=== PATIENT | male | born 1940 | race Two or more races ===

== ENCOUNTER → 2018-02-28 | Outpatient (CLI) | payer MEDICARE | END | disposition home or self-care (01) | LOC: RADPV 14:32 | PROVIDERS: ATTEND Legal Medicine | DX: M25.552 Pain in left hip (principal) | CPT/HCPCS: 73503 ==

== ENCOUNTER 2018-11-14 21:23 | Emergency (ER) | payer MEDICARE ==
[~2018-11-14] VITALS: Ht 182.9 cm; Wt 71.8 kg
[2018-11-14] MEDS ORDERED: SERT25TA PO (21:45)
[2018-11-14] MEDS ORDERED: GABA600T PO (21:45)
[2018-11-14] MEDS ORDERED: FERR325T22 PO (21:45)
[2018-11-14] MEDS ORDERED: CYAN250014 PO (21:45)
[2018-11-14] MEDS ORDERED: HYDR-4455 PO (21:45)
[2018-11-14] MEDS ORDERED: FURO40SO PO (21:45)
[2018-11-14] MEDS ORDERED: FOLI1TAB15 PO (21:45)
[2018-11-14] MEDS ORDERED: TAMS0.4C32 PO (21:45)
[2018-11-14] MEDS ORDERED: POTA20TA11 PO (21:45)
[2018-11-14] MEDS ORDERED: XALA2.5OS OU (21:45)
[2018-11-14] MEDS ORDERED: DIAZ5TAB4 PO (21:45)
[2018-11-14] MEDS ORDERED: DOCU250C16 PO (21:45)
[2018-11-14] MEDS ORDERED: FINA5TAB41 PO (21:45)
[2018-11-14] MEDS ORDERED: ASCO500T24 PO (21:45)
[2018-11-14] MEDS ORDERED: KETOROLAC TROMETHAMINE 30 MG/ML VIAL IVP ONE (22:15)
[2018-11-14] MEDS ORDERED: ACETAMINOPHEN 325 MG TABLET PO ONE (22:15)
[2018-11-14 22:33] LABS: BASOPHILS % (AUTO) 0.6 % (0.0-2.0); EOSINOPHILS % (AUTO) 0.8 % (1.0-6.0); HEMATOCRIT 36.4 % (41-53); HEMOGLOBIN 11.9 g/dL (13.5-17.5); LYMPHOCYTES # (AUTO) 1.2 K/uL (1.0-4.8); LYMPHOCYTES % (AUTO) 8.7 % (22.0-44.0); MEAN CORPUSCULAR HEMOGLOBIN 28.4 pg (26.0-34.0); MEAN CORPUSCULAR HGB CONC 32.8 G/dL (31.0-37.0); MEAN CORPUSCULAR VOLUME 87 fL (80-100); MONOCYTES % (AUTO) 7.6 % (2.0-9.0); NEUTROPHILS # (AUTO) 11.3 K/uL (1.8-7.7); NEUTROPHILS % (AUTO) 82.3 % (40.0-70.0); PLATELET COUNT (AUTO) 419 K/uL (150-450)
[2018-11-14 22:46] LABS: ANION GAP 9 mmol/L (8-16); CALCIUM, TOTAL 8.9 mg/dL (8.8-10.5); CARBON DIOXIDE 28 mmol/L (22-29); CHLORIDE 98 mmol/L (98-107); CREATININE 1.03 mg/dL (0.60-1.30); GLOMERULAR FILTR. RATE CALC > 60 mL/min (>60); GLUCOSE,RANDOM 118 mg/dL (70-110); POTASSIUM 3.6 mmol/L (3.5-5.1); SODIUM SERUM 135 mmol/L (136-145); UREA NITROGEN, BLOOD 8 mg/dL (7-18)
[2018-11-14 22:52] LABS: ALANINE AMINOTRANSFERASE 14 U/L (12-78); ALBUMIN 2.6 g/dL (3.4-5.0); ALKALINE PHOSPHATASE 175 U/L (46-116); ASPARTATE AMINOTRANSFERASE 14 U/L (15-37); BILIRUBIN,TOTAL 0.2 mg/dL (0.1-1.0); TOTAL PROTEIN, SERUM 7.1 g/dL (6.4-8.2)
[2018-11-14 22:54] LABS: LACTIC ACID 1.2 mmol/L (0.4-2.0)
[2018-11-15 02:36] LABS: APPEARANCE,URINE CLOUDY (CLEAR); BILIRUBIN,URINE NEGATIVE (NEGATIVE); GLUCOSE, URINE (UA) NEGATIVE (NEGATIVE); KETONES,URINE NEGATIVE (NEGATIVE); LEUKOCYTE ESTERASE ,URINE LARGE (NEGATIVE); NITRATE,URINE POSITIVE (NEGATIVE); OCCULT BLOOD,URINE TRACE (NEGATIVE); PROTEIN,URINE TRACE (NEGATIVE); UROBILINOGEN,URINE 0.2 mg/dL (<=1.0)
[2018-11-15 02:44] LABS: BACTERIA,URINE Many /HPF (None Seen); SQUAMOUS EPITHELIAL CELL,UR Rare /LPF (None Seen); WBC,URINE 51-100 /HPF (0-5)
[2018-11-15] MEDS ORDERED: CefTRIAXone SODIUM 1 GM/VIAL IM ONE (03:00)
[2018-11-15] MEDS ORDERED: LIDOCAINE/PF 1% 2 ML VIAL IM ONE (03:00)
[2018-11-15] MEDS ORDERED: CefTRIAXone 1 GM/DEXTROSE 50 ML IV ONE ×2 (03:21→03:30)
[2018-11-15 03:34] VITALS: BP 124/60
== END 2018-11-15 04:16 | disposition home or self-care (01) ==
LOC: EMS 21:24
DX: N39.0 Urinary tract infection, site not specified (principal); R41.0 Disorientation, unspecified; K21.9 Gastro-esophageal reflux disease without esophagitis; I10 Essential (primary) hypertension; F32.9 Major depressive disorder, single episode, unspecified; Z96.642 Presence of left artificial hip joint
CPT/HCPCS: 36415; 51701; 71045; 76999; 80053; 81001; 83605; 85025; 87040; 87077; 87086; 87186; 93005; 96365; 96375; 99284; J0696; J1885; J3490

== ENCOUNTER 2018-11-17 12:07 | Inpatient (IN) | payer MEDICARE ==
[~2018-11-17] VITALS: Ht 162.6 cm; Wt 71.0 kg
[~2018-11-17 12:07] MED LIST: ASCO500T24 PO; CYAN250014 PO; DIAZ5TAB4 PO; DOCU250C16 PO; FERR325T22 PO; FINA5TAB41 PO; FOLI1TAB15 PO; FURO40SO PO; GABA600T PO; HYDR-4455 PO; POTA20TA11 PO; SERT25TA PO; TAMS0.4C32 PO; XALA2.5OS OU
[2018-11-17] MEDS ORDERED: FURO20 PO (12:59)
[2018-11-17] MEDS ORDERED: CYAN500 PO (12:59)
[2018-11-17] MEDS ORDERED: SERT50TA12 PO (12:59)
[2018-11-17] MEDS ORDERED: MAGNESIUM HYDROXIDE SUSPENSION 30 ML UDCUP PO PRN (13:00)
[2018-11-17] MEDS ORDERED: DOCUSATE SODIUM 250 MG CAPSULE PO PRN (13:00)
[2018-11-17] MEDS ORDERED: ALBUTEROL SULFATE 2.5 MG/0.5 ML NEB SOLUTION NEB PRN (13:00)
[2018-11-17] MEDS ORDERED: IPRATROPIUM BROMIDE 0.5 MG/2.5 ML NEB SOLUTION NEB PRN (13:00)
[2018-11-17] MEDS ORDERED: ZOLPIDEM TARTRATE 5 MG TABLET PO PRN (13:00)
[2018-11-17] MEDS ORDERED: DIAZEPAM 5 MG TABLET PO PRN (13:00)
[2018-11-17] MEDS ORDERED: ONDANSETRON HCL 4 MG/2 ML VIAL IVP PRN (13:00)
[2018-11-17] MEDS ORDERED: BISACODYL 10 MG RECTAL RECTAL SUPPOSITORY PR PRN (13:00)
[2018-11-17 13:06] LABS: BASOPHILS % (AUTO) 0.3 % (0.0-2.0); EOSINOPHILS % (AUTO) 0.8 % (1.0-6.0); HEMATOCRIT 37.7 % (41-53); HEMOGLOBIN 12.4 g/dL (13.5-17.5); LYMPHOCYTES # (AUTO) 1.2 K/uL (1.0-4.8); LYMPHOCYTES % (AUTO) 13.3 % (22.0-44.0); MEAN CORPUSCULAR HEMOGLOBIN 29.1 pg (26.0-34.0); MEAN CORPUSCULAR HGB CONC 32.8 G/dL (31.0-37.0); MEAN CORPUSCULAR VOLUME 89 fL (80-100); MONOCYTES % (AUTO) 11.7 % (2.0-9.0); NEUTROPHILS # (AUTO) 6.5 K/uL (1.8-7.7); NEUTROPHILS % (AUTO) 73.9 % (40.0-70.0); PLATELET COUNT (AUTO) 360 K/uL (150-450); RED BLOOD CELL COUNT(AUTO) 4.26 MIL/uL (4.50-5.90); RED CELL DISTRIBUTION WIDTH 13.9 % (11.5-14.5)
[2018-11-17 13:16] LABS: ANION GAP 9 mmol/L (8-16); CALCIUM, TOTAL 9.3 mg/dL (8.8-10.5); CARBON DIOXIDE 28 mmol/L (22-29); CHLORIDE 99 mmol/L (98-107); CREATININE 1.06 mg/dL (0.60-1.30); GLOMERULAR FILTR. RATE CALC > 60 mL/min (>60); GLUCOSE,RANDOM 100 mg/dL (70-110); SODIUM SERUM 136 mmol/L (136-145); UREA NITROGEN, BLOOD 10 mg/dL (7-18)
[2018-11-17] MEDS: HEPARIN SODIUM,PORCINE 5,000 UNITS/ML VIAL SQ SCH ×2 (13:20→21:37)
[2018-11-17] MEDS ORDERED: CefTRIAXone 1 GM/DEXTROSE 50 ML IV SCH (14:00)
[2018-11-17 14:16] LABS: ERYTHROCYTE SEDIMENTATION RATE 58 MM/HR (0-15)
[2018-11-17] MEDS ORDERED: GADOBUTROL 1 MMOL/ML 10 ML VIAL IVP ONE (14:35)
[2018-11-17] MEDS: GABAPENTIN 300 MG CAPSULE PO SCH ×2 (17:29→21:34)
[2018-11-17] MEDS: HYDROCODONE/ACETAMINOPHEN 10-325 MG TABLET PO PRN (17:34)
[2018-11-17 19:46] VITALS: BP 135/70
[2018-11-17] MEDS: ACETAMINOPHEN 325 MG TABLET PO PRN (21:34)
[2018-11-17] MEDS: LATANOPROST 0.005% 2.5 ML OPHTHALMIC SOLUTION OU SCH (21:49)
[2018-11-17] MEDS ORDERED: VANCOMYCIN HCL 1.5 GM in DEXTROSE 5%-WATER 250 ML IV ONE (22:00)
[2018-11-17] MEDS ORDERED: SODIUM CHLORIDE 0.9% 250 ML IV ONE (23:13)
[2018-11-17 23:28] VITALS: BP 130/70
[2018-11-18 04:07] VITALS: BP 143/75
[2018-11-18] MEDS: HYDROCODONE/ACETAMINOPHEN 10-325 MG TABLET PO PRN ×4 (06:11→20:03)
[2018-11-18 06:14] LABS: BASOPHILS % (AUTO) 0.6 % (0.0-2.0); EOSINOPHILS % (AUTO) 2.3 % (1.0-6.0); HEMATOCRIT 34.7 % (41-53); HEMOGLOBIN 11.9 g/dL (13.5-17.5); LYMPHOCYTES % (AUTO) 15.6 % (22.0-44.0); MEAN CORPUSCULAR HEMOGLOBIN 32.1 pg (26.0-34.0); MEAN CORPUSCULAR HGB CONC 34.3 G/dL (31.0-37.0); MEAN CORPUSCULAR VOLUME 94 fL (80-100); MONOCYTES # (AUTO) 0.8 K/uL (0.1-1.0); MONOCYTES % (AUTO) 12.3 % (2.0-9.0); NEUTROPHILS # (AUTO) 4.3 K/uL (1.8-7.7); NEUTROPHILS % (AUTO) 69.2 % (40.0-70.0); PLATELET COUNT (AUTO) 327 K/uL (150-450); RED CELL DISTRIBUTION WIDTH 14.3 % (11.5-14.5)
[2018-11-18 06:37] LABS: ANION GAP 5 mmol/L (8-16); C-REACTIVE PROTEIN QUANT 13.17 mg/dL (0.00-0.30); CALCIUM, TOTAL 8.9 mg/dL (8.8-10.5); CARBON DIOXIDE 32 mmol/L (22-29); CHLORIDE 102 mmol/L (98-107); CHOL/HDL RATIO 3.6 (4.2-7.3); CHOLESTEROL 116 mg/dL (131-200); CREATININE 0.99 mg/dL (0.60-1.30); FREE T4 (FREE THYROXINE) 0.88 ng/dL (0.76-1.46); GLUCOSE,RANDOM 88 mg/dL (70-110); HDL CHOLESTEROL 32 mg/dL (40-60); LDL CHOL (CALC.) 70 mg/dL (0-130); POTASSIUM 3.9 mmol/L (3.5-5.1); SODIUM SERUM 139 mmol/L (136-145); TRIGLYCERIDES 70 mg/dL (15-150); UREA NITROGEN, BLOOD 8 mg/dL (7-18)
[2018-11-18 06:39] LABS: GLOMERULAR FILTR. RATE CALC > 60 mL/min (>60)
[2018-11-18 06:47] LABS: HEMOGLOBIN A1C 5.5 % (4.5-6.2)
[2018-11-18 07:50] LABS: APPEARANCE,URINE CLOUDY (CLEAR); BILIRUBIN,URINE NEGATIVE (NEGATIVE); GLUCOSE, URINE (UA) NEGATIVE (NEGATIVE); KETONES,URINE NEGATIVE (NEGATIVE); LEUKOCYTE ESTERASE ,URINE MODERATE (NEGATIVE); NITRATE,URINE NEGATIVE (NEGATIVE); OCCULT BLOOD,URINE NEGATIVE (NEGATIVE); PROTEIN,URINE TRACE (NEGATIVE); UROBILINOGEN,URINE 0.2 mg/dL (<=1.0)
[2018-11-18] MEDS ORDERED: VANCOMYCIN HCL 750 MG in DEXTROSE 5%-WATER 250 ML IV SCH (08:00)
[2018-11-18 08:04] VITALS: BP 142/84
[2018-11-18 08:12] LABS: RBC,URINE 0-2 /HPF (0-2)
[2018-11-18 08:13] LABS: BACTERIA,URINE Moderate /HPF (None Seen)
[2018-11-18 08:18] LABS: RENAL EPITHELIAL CELLS,URINE Moderate /LPF (None Seen)
[2018-11-18] MEDS: TAMSULOSIN HCL 0.4 MG CAPSULE PO SCH (08:24)
[2018-11-18] MEDS: POTASSIUM CHLORIDE 20 MEQ ER TABLET PO SCH (08:24)
[2018-11-18] MEDS: ASCORBIC ACID 500 MG TABLET PO SCH (08:24)
[2018-11-18] MEDS: SERTRALINE HCL 50 MG TABLET PO SCH (08:25)
[2018-11-18] MEDS: FINASTERIDE 5 MG TABLET PO SCH (08:25)
[2018-11-18] MEDS: CYANOCOBALAMIN 500 MCG TABLET PO SCH (08:25)
[2018-11-18] MEDS: FUROSEMIDE 20 MG TABLET PO SCH (08:25)
[2018-11-18] MEDS: GABAPENTIN 300 MG CAPSULE PO SCH ×3 (08:25→20:02)
[2018-11-18] MEDS: HEPARIN SODIUM,PORCINE 5,000 UNITS/ML VIAL SQ SCH ×2 (08:26→20:03)
[2018-11-18] MEDS: FERROUS SULFATE 325 MG EC TABLET PO SCH (08:26)
[2018-11-18] MEDS: FOLIC ACID 1 MG TABLET PO SCH (11:06)
[2018-11-18 11:37] VITALS: BP 156/82
[2018-11-18 15:37] VITALS: BP 139/70
[2018-11-18 19:30] VITALS: BP 137/67
[2018-11-18] MEDS: VANCOMYCIN HCL 1 GM/D5% WATER 200 ML IV SCH (20:02)
[2018-11-18] MEDS: LATANOPROST 0.005% 2.5 ML OPHTHALMIC SOLUTION OU SCH (20:03)
[2018-11-18] MEDS: ACETAMINOPHEN 325 MG TABLET PO PRN (21:10)
[2018-11-18 23:12] VITALS: BP 125/69
[2018-11-19] MEDS: HYDROCODONE/ACETAMINOPHEN 10-325 MG TABLET PO PRN ×2 (04:24→12:49)
[2018-11-19 04:57] VITALS: BP 143/91
[2018-11-19 06:05] LABS: BASOPHILS % (AUTO) 0.5 % (0.0-2.0); EOSINOPHILS % (AUTO) 3.6 % (1.0-6.0); HEMATOCRIT 36.3 % (41-53); HEMOGLOBIN 11.9 g/dL (13.5-17.5); LYMPHOCYTES % (AUTO) 13.9 % (22.0-44.0); MEAN CORPUSCULAR HEMOGLOBIN 28.5 pg (26.0-34.0); MEAN CORPUSCULAR HGB CONC 32.9 G/dL (31.0-37.0); MEAN CORPUSCULAR VOLUME 87 fL (80-100); MONOCYTES # (AUTO) 0.8 K/uL (0.1-1.0); MONOCYTES % (AUTO) 11.4 % (2.0-9.0); NEUTROPHILS # (AUTO) 4.9 K/uL (1.8-7.7); NEUTROPHILS % (AUTO) 70.6 % (40.0-70.0); PLATELET COUNT (AUTO) 357 K/uL (150-450); RED BLOOD CELL COUNT(AUTO) 4.18 MIL/uL (4.50-5.90); RED CELL DISTRIBUTION WIDTH 14.4 % (11.5-14.5)
[2018-11-19 06:17] LABS: ANION GAP 5 mmol/L (8-16); CALCIUM, TOTAL 8.6 mg/dL (8.8-10.5); CARBON DIOXIDE 32 mmol/L (22-29); CHLORIDE 102 mmol/L (98-107); CREATININE 0.92 mg/dL (0.60-1.30); GLUCOSE,RANDOM 85 mg/dL (70-110); POTASSIUM 4.1 mmol/L (3.5-5.1); SODIUM SERUM 139 mmol/L (136-145); UREA NITROGEN, BLOOD 8 mg/dL (7-18)
[2018-11-19 06:33] LABS: GLOMERULAR FILTR. RATE CALC > 60 mL/min (>60)
[2018-11-19 08:00] VITALS: BP 151/81
[2018-11-19] MEDS: FERROUS SULFATE 325 MG EC TABLET PO SCH (08:00)
[2018-11-19] MEDS: VANCOMYCIN HCL 1 GM/D5% WATER 200 ML IV SCH ×2 (08:00→20:01)
[2018-11-19] MEDS ORDERED: ACETAMINOPHEN 1000 MG/ISO-OSM 100 ML IV ONE (08:21)
[2018-11-19] MEDS ORDERED: RINGERS SOLUTION,LACTATED 1,000 ML IV ONE (08:22)
[2018-11-19] MEDS ORDERED: BUPIVACAINE HCL/PF 0.25% 30 ML VIAL ONE (08:53)
[2018-11-19] MEDS ORDERED: VANCOMYCIN HCL 1 GM/VIAL ONE (08:53)
[2018-11-19] MEDS: HEPARIN SODIUM,PORCINE 5,000 UNITS/ML VIAL SQ SCH ×2 (09:00→20:02)
[2018-11-19] MEDS ORDERED: OxyCODONE HCL/ACETAMINOPHEN 5-325 MG TABLET PO PRN (09:00)
[2018-11-19] MEDS: CYANOCOBALAMIN 500 MCG TABLET PO SCH (09:00)
[2018-11-19] MEDS: FOLIC ACID 1 MG TABLET PO SCH (09:00)
[2018-11-19] MEDS ORDERED: BENZOCAINE/MENTHOL LOZENGE PO PRN (09:00)
[2018-11-19] MEDS: SERTRALINE HCL 50 MG TABLET PO SCH (09:00)
[2018-11-19] MEDS: POTASSIUM CHLORIDE 20 MEQ ER TABLET PO SCH (09:00)
[2018-11-19] MEDS ORDERED: ZOLPIDEM TARTRATE 10 MG TABLET PO PRN (09:00)
[2018-11-19] MEDS: TAMSULOSIN HCL 0.4 MG CAPSULE PO SCH (09:00)
[2018-11-19] MEDS: FUROSEMIDE 20 MG TABLET PO SCH (09:00)
[2018-11-19] MEDS: FINASTERIDE 5 MG TABLET PO SCH (09:00)
[2018-11-19] MEDS: DOCUSATE SODIUM 100 MG CAPSULE PO SCH ×2 (09:00→20:56)
[2018-11-19] MEDS: GABAPENTIN 300 MG CAPSULE PO SCH ×3 (09:00→20:01)
[2018-11-19] MEDS ORDERED: DiphenhydrAMINE HCL 50 MG/ML VIAL IVP PRN (09:00)
[2018-11-19] MEDS: ASCORBIC ACID 500 MG TABLET PO SCH (09:00)
[2018-11-19] MEDS ORDERED: VANCOMYCIN HCL 1 GM/VIAL TP ONE (10:06)
[2018-11-19] MEDS ORDERED: HYDROmorphone 2 MG/ML SYRINGE ONE (11:02)
[2018-11-19] MEDS: HYDROmorphone 2 MG/ML SYRINGE IVP PRN ×5 (11:04→20:03)
[2018-11-19] MEDS ORDERED: FentaNYL CITRATE-PF 100 MCG/2 ML VIAL IVP PRN (11:15)
[2018-11-19] MEDS ORDERED: MEPERIDINE-PF 25 MG/ML VIAL IVP PRN (11:15)
[2018-11-19] MEDS ORDERED: FentaNYL CITRATE-PF 100 MCG/2 ML VIAL IVP ONE (12:00)
[2018-11-19] MEDS ORDERED: EPHEDrine SULFATE 50 MG/ML VIAL IM ONE (12:00)
[2018-11-19] MEDS ORDERED: ROCURONIUM BROMIDE 10 MG/ML 5 ML VIAL IVP ONE (12:00)
[2018-11-19] MEDS ORDERED: ONDANSETRON HCL 4 MG/2 ML VIAL IVP ONE (12:00)
[2018-11-19] MEDS ORDERED: LIDOCAINE/PF 2% 5 ML VIAL INJ ONE (12:00)
[2018-11-19] MEDS ORDERED: PROPOFOL 1% 20 ML VIAL IVP ONE (12:00)
[2018-11-19 12:08] VITALS: BP 138/67
[2018-11-19 16:00] VITALS: BP 157/95
[2018-11-19] MEDS ORDERED: BACITRACIN 28.4 GM OINTMENT TP PRN (19:00)
[2018-11-19] MEDS: LATANOPROST 0.005% 2.5 ML OPHTHALMIC SOLUTION OU SCH (20:08)
[2018-11-19 20:12] VITALS: BP 160/86
[2018-11-19] MEDS ORDERED: SODIUM CHLORIDE 0.9% 1,000 ML IV ONE (20:32)
[2018-11-19] MEDS ORDERED: VANCOMYCIN HCL 1 GM/D5% WATER 200 ML IV SCH (21:00)
[2018-11-19 23:20] VITALS: BP 158/88
[2018-11-20 04:15] VITALS: BP 157/80
[2018-11-20] MEDS: HYDROmorphone 2 MG/ML SYRINGE IVP PRN (04:34)
[2018-11-20] MEDS: ACETAMINOPHEN 325 MG TABLET PO PRN (05:37)
[2018-11-20 06:24] LABS: BASOPHILS % (AUTO) 0.4 % (0.0-2.0); EOSINOPHILS % (AUTO) 0.2 % (1.0-6.0); HEMOGLOBIN 13.9 g/dL (13.5-17.5); LYMPHOCYTES # (AUTO) 0.4 K/uL (1.0-4.8); LYMPHOCYTES % (AUTO) 4.1 % (22.0-44.0); MEAN CORPUSCULAR HEMOGLOBIN 29.5 pg (26.0-34.0); MEAN CORPUSCULAR HGB CONC 33.2 G/dL (31.0-37.0); MEAN CORPUSCULAR VOLUME 89 fL (80-100); MONOCYTES # (AUTO) 0.7 K/uL (0.1-1.0); MONOCYTES % (AUTO) 6.7 % (2.0-9.0); NEUTROPHILS # (AUTO) 9.7 K/uL (1.8-7.7); PLATELET COUNT (AUTO) 381 K/uL (150-450); RED BLOOD CELL COUNT(AUTO) 4.71 MIL/uL (4.50-5.90); RED CELL DISTRIBUTION WIDTH 14.4 % (11.5-14.5)
[2018-11-20 06:47] LABS: NEUTROPHILS % (AUTO) 88.6 % (40.0-70.0)
[2018-11-20 06:52] LABS: ANION GAP 11 mmol/L (8-16); C-REACTIVE PROTEIN QUANT 16.26 mg/dL (0.00-0.30); CALCIUM, TOTAL 8.8 mg/dL (8.8-10.5); CARBON DIOXIDE 26 mmol/L (22-29); CHLORIDE 99 mmol/L (98-107); CREATININE 1.01 mg/dL (0.60-1.30); GLUCOSE,RANDOM 92 mg/dL (70-110); SODIUM SERUM 136 mmol/L (136-145); UREA NITROGEN, BLOOD 8 mg/dL (7-18); VANCOMYCIN,RANDOM 28.5 mcg/mL (25.0-50.0)
[2018-11-20 06:54] LABS: GLOMERULAR FILTR. RATE CALC > 60 mL/min (>60)
[2018-11-20 07:57] VITALS: BP 151/90
[2018-11-20] MEDS: VANCOMYCIN HCL 1 GM/D5% WATER 200 ML IV SCH (09:15)
[2018-11-20] MEDS: POTASSIUM CHLORIDE 20 MEQ ER TABLET PO SCH (09:17)
[2018-11-20] MEDS: TAMSULOSIN HCL 0.4 MG CAPSULE PO SCH (09:17)
[2018-11-20] MEDS: FOLIC ACID 1 MG TABLET PO SCH (09:17)
[2018-11-20] MEDS: DOCUSATE SODIUM 100 MG CAPSULE PO SCH ×2 (09:17→21:46)
[2018-11-20] MEDS: GABAPENTIN 300 MG CAPSULE PO SCH ×3 (09:18→21:46)
[2018-11-20] MEDS: ASCORBIC ACID 500 MG TABLET PO SCH (09:18)
[2018-11-20] MEDS: SERTRALINE HCL 50 MG TABLET PO SCH (09:18)
[2018-11-20] MEDS: FUROSEMIDE 20 MG TABLET PO SCH (09:18)
[2018-11-20] MEDS: HYDROCODONE/ACETAMINOPHEN 10-325 MG TABLET PO PRN ×3 (09:36→21:46)
[2018-11-20] MEDS: FINASTERIDE 5 MG TABLET PO SCH (09:37)
[2018-11-20] MEDS: HEPARIN SODIUM,PORCINE 5,000 UNITS/ML VIAL SQ SCH ×2 (09:37→21:46)
[2018-11-20] MEDS: FERROUS SULFATE 325 MG EC TABLET PO SCH (09:38)
[2018-11-20 10:17] LABS: INR 1.1 (0.9-1.1); PROTHROMBIN TIME 11.3 SEC (9.4-11.6)
[2018-11-20 11:58] VITALS: BP 144/73
[2018-11-20] MEDS: CYANOCOBALAMIN 500 MCG TABLET PO SCH (14:45)
[2018-11-20 15:32] VITALS: BP 150/74
[2018-11-20 19:28] VITALS: BP 149/76
[2018-11-20] MEDS: LATANOPROST 0.005% 2.5 ML OPHTHALMIC SOLUTION OU SCH (21:46)
[2018-11-21] VITALS (7 sets, daily range): BP systolic 97–148; BP diastolic 52–92
[2018-11-21] MEDS: HYDROCODONE/ACETAMINOPHEN 10-325 MG TABLET PO PRN (05:40)
[2018-11-21 06:33] LABS: CALCIUM, TOTAL 9.2 mg/dL (8.8-10.5); CREATININE 1.43 mg/dL (0.60-1.30); POTASSIUM 4.5 mmol/L (3.5-5.1)
[2018-11-21] MEDS ORDERED: VANCOMYCIN HCL 1 GM/D5% WATER 200 ML IV SCH (08:00)
[2018-11-21] MEDS: CYANOCOBALAMIN 500 MCG TABLET PO SCH (08:37)
[2018-11-21] MEDS: SERTRALINE HCL 50 MG TABLET PO SCH (08:38)
[2018-11-21] MEDS: FOLIC ACID 1 MG TABLET PO SCH (08:38)
[2018-11-21] MEDS: GABAPENTIN 300 MG CAPSULE PO SCH ×3 (08:38→20:16)
[2018-11-21] MEDS: ASCORBIC ACID 500 MG TABLET PO SCH (08:38)
[2018-11-21] MEDS: POTASSIUM CHLORIDE 20 MEQ ER TABLET PO SCH (08:38)
[2018-11-21] MEDS: FINASTERIDE 5 MG TABLET PO SCH (08:38)
[2018-11-21] MEDS: HEPARIN SODIUM,PORCINE 5,000 UNITS/ML VIAL SQ SCH ×2 (08:38→20:17)
[2018-11-21] MEDS: FERROUS SULFATE 325 MG EC TABLET PO SCH (08:38)
[2018-11-21] MEDS: TAMSULOSIN HCL 0.4 MG CAPSULE PO SCH (08:38)
[2018-11-21] MEDS: DOCUSATE SODIUM 100 MG CAPSULE PO SCH ×2 (08:38→20:16)
[2018-11-21] MEDS: FUROSEMIDE 20 MG TABLET PO SCH (08:40)
[2018-11-21] MEDS: OxyCODONE HCL/ACETAMINOPHEN 5-325 MG TABLET PO PRN ×3 (08:41→20:16)
[2018-11-21] MEDS ORDERED: VANCOMYCIN HCL 1 GM/D5% WATER 200 ML IV PRN (08:45)
[2018-11-21] MEDS: LATANOPROST 0.005% 2.5 ML OPHTHALMIC SOLUTION OU SCH (20:16)
[2018-11-22] MEDS: OxyCODONE HCL/ACETAMINOPHEN 5-325 MG TABLET PO PRN ×3 (04:17→16:14)
[2018-11-22 04:49] VITALS: BP 106/69
[2018-11-22 05:55] LABS: CALCIUM, TOTAL 8.6 mg/dL (8.8-10.5); CREATININE 1.88 mg/dL (0.60-1.30); POTASSIUM 4.1 mmol/L (3.5-5.1); VANCOMYCIN,RANDOM 20.2 mcg/mL (25.0-50.0)
[2018-11-22 07:49] VITALS: BP 114/63
[2018-11-22] MEDS ORDERED: VANCOMYCIN HCL 750 MG in DEXTROSE 5%-WATER 250 ML IV SCH (08:00)
[2018-11-22] MEDS: CYANOCOBALAMIN 500 MCG TABLET PO SCH (08:26)
[2018-11-22] MEDS: FOLIC ACID 1 MG TABLET PO SCH (08:27)
[2018-11-22] MEDS: FINASTERIDE 5 MG TABLET PO SCH (08:27)
[2018-11-22] MEDS: GABAPENTIN 300 MG CAPSULE PO SCH ×2 (08:27→16:13)
[2018-11-22] MEDS: ASCORBIC ACID 500 MG TABLET PO SCH (08:27)
[2018-11-22] MEDS: DOCUSATE SODIUM 100 MG CAPSULE PO SCH (08:27)
[2018-11-22] MEDS: POTASSIUM CHLORIDE 20 MEQ ER TABLET PO SCH (08:27)
[2018-11-22] MEDS: FUROSEMIDE 20 MG TABLET PO SCH (08:27)
[2018-11-22] MEDS: SERTRALINE HCL 50 MG TABLET PO SCH (08:27)
[2018-11-22] MEDS: FERROUS SULFATE 325 MG EC TABLET PO SCH (08:27)
[2018-11-22] MEDS: TAMSULOSIN HCL 0.4 MG CAPSULE PO SCH (08:28)
[2018-11-22] MEDS ORDERED: SODIUM CHLORIDE 0.9% 250 ML IV ONE (08:38)
[2018-11-22] MEDS: HEPARIN SODIUM,PORCINE 5,000 UNITS/ML VIAL SQ SCH (09:00)
[2018-11-22 16:32] VITALS: BP 126/69
== END 2018-11-22 16:55 | DRG 907 ==
LOC: EMS 12:08 → 6N 14:01
PROVIDERS: ADMIT Internal Medicine Geriatric Medicine; ATTEND Internal Medicine Geriatric Medicine
PROC: 0J970ZZ Drainage of Back Subcutaneous Tissue and Fascia, Open Approach (ICD-10-PCS; principal; 2018-11-19 09:46)
PROC: 02HV33Z Insertion of Infusion Device into Superior Vena Cava, Percutaneous Approach (ICD-10-PCS; 2018-11-20)
PROC: B548ZZA Ultrasonography of Superior Vena Cava, Guidance (ICD-10-PCS; 2018-11-20)
DX: T81.89XA Other complications of procedures, not elsewhere classified, initial encounter (principal); A41.9 Sepsis, unspecified organism; G06.1 Intraspinal abscess and granuloma; E46 Unspecified protein-calorie malnutrition; M86.9 Osteomyelitis, unspecified; I13.0 Hypertensive heart and chronic kidney disease with heart failure and stage 1 through stage 4 chronic kidney disease, or unspecified chronic kidney disease; N39.0 Urinary tract infection, site not specified; L03.90 Cellulitis, unspecified; F32.9 Major depressive disorder, single episode, unspecified; G89.18 Other acute postprocedural pain; N40.1 Benign prostatic hyperplasia with lower urinary tract symptoms; I50.9 Heart failure, unspecified; K21.9 Gastro-esophageal reflux disease without esophagitis; N18.9 Chronic kidney disease, unspecified; Z96.649 Presence of unspecified artificial hip joint; Z87.440 Personal history of urinary (tract) infections; Z86.14 Personal history of Methicillin resistant Staphylococcus aureus infection; Z82.49 Family history of ischemic heart disease and other diseases of the circulatory system; Z68.26 Body mass index [BMI] 26.0-26.9, adult
CPT/HCPCS: 36245; 36569; 72158; 76937; 83036; 83735; 84145; 84439; 85651; 86140; 87040; 87070; 87081; 87086; 87205; 96365; 96366; 97162; 97166; 97530; 97535; A9585; G0238; G0378; J0131; J0696; J1170; J1200; J1644; J2175; J2405; J2704; J3010; J3370; J3490; J7030; J7050; J7060; J7120

== ENCOUNTER 2021-12-18 14:20 | Inpatient (IN) | payer MEDICARE, OTHER ==
[~2021-12-18] VITALS: Ht 182.9 cm; Wt 75.0 kg
[~2021-12-18 14:20] MED LIST changes: +ACET-784 PO; -ASCO500T24 PO; +ASCO500T92 PO; -CYAN250014 PO; +CYAN500T9 PO; -DIAZ5TAB4 PO; +DIPH25 PO; +FINA-27 PO; -FINA5TAB41 PO; +FURO20 PO; -FURO40SO PO; +HYDR2TAB37 PO; +MOM30 PO; +MULT-660 PO; +ONDA-104 PO; +POTA-194 PO; -POTA20TA11 PO; +SERT-158 PO; -SERT25TA PO; +VANC1.5P16 FLUSH
[2021-12-18] MEDS ORDERED: PANT-31 PO (15:37)
[2021-12-18] MEDS ORDERED: LACT1CAP79 PO (15:37)
[2021-12-18 15:39] LABS: BASOPHILS % (AUTO) 0.8 % (0.0-2.0); EOSINOPHILS % (AUTO) 1.8 % (1.0-6.0); HEMATOCRIT 41.2 % (41-53); HEMOGLOBIN 13.7 g/dL (13.5-17.5); MEAN CORPUSCULAR HEMOGLOBIN 33.4 pg (26.0-34.0); MEAN CORPUSCULAR HGB CONC 33.2 G/dL (31.0-37.0); MEAN CORPUSCULAR VOLUME 100 fL (80-100); MONOCYTES # (AUTO) 0.4 K/uL (0.1-1.0); MONOCYTES % (AUTO) 7.6 % (2.0-9.0); NEUTROPHILS # (AUTO) 3.3 K/uL (1.8-7.7); NEUTROPHILS % (AUTO) 55.8 % (40.0-70.0); PLATELET COUNT (AUTO) 179 K/uL (150-450); RED BLOOD CELL COUNT(AUTO) 4.11 MIL/uL (4.50-5.90); RED CELL DISTRIBUTION WIDTH 14.8 % (11.5-14.5)
[2021-12-18] MEDS ORDERED: HYDR-4072 PO (15:44)
[2021-12-18] MEDS ORDERED: TAMS-13 PO (15:44)
[2021-12-18] MEDS ORDERED: FOLI-130 PO (15:44)
[2021-12-18] MEDS ORDERED: WATER IV PRN (15:45)
[2021-12-18] MEDS ORDERED: DEXTROSE 5% IV PRN (15:45)
[2021-12-18] MEDS ORDERED: ISOPROTERENOL HCL IV PRN (15:45)
[2021-12-18 15:49] LABS: COVID AG,FIA SOURCE NASOPHARYNGEAL
[2021-12-18] MEDS ORDERED: ATROPINE SULFATE 0.1 MG/ML 10 ML SYRINGE IVP ONE (16:00)
[2021-12-18 16:04] LABS: CALCIUM, TOTAL 8.9 mg/dL (8.8-10.5); CREATININE 1.6 mg/dL (0.60-1.30)
[2021-12-18 16:05] LABS: INR 1.1 (0.9-1.1); PROTHROMBIN TIME 11.4 SEC (9.4-11.6)
[2021-12-18] MEDS ORDERED: SODIUM BICARBONATE 50 MEQ/50 ML VIAL ONE (16:22)
[2021-12-18] MEDS ORDERED: IOHEXOL 300 MG/ML 50 ML VIAL ONE (16:22)
[2021-12-18] MEDS ORDERED: LIDOCAINE/PF 1% 30 ML VIAL ONE ×3 (16:22→17:29)
[2021-12-18 16:29] LABS: ALBUMIN 3.6 g/dL (3.4-5.0); BILIRUBIN,TOTAL 0.4 mg/dL (0.1-1.0); MAGNESIUM 1.9 mg/dL (1.80-2.40); PHOSPHORUS 3.9 mg/dL (2.5-4.9); TOTAL PROTEIN, SERUM 6.9 g/dL (6.4-8.2)
[2021-12-18] MEDS ORDERED: ONDANSETRON HCL 4 MG/2 ML VIAL IVP PRN (16:30)
[2021-12-18] MEDS ORDERED: BISACODYL 10 MG RECTAL RECTAL SUPPOSITORY PR PRN (16:30)
[2021-12-18] MEDS ORDERED: MORPHINE SULFATE 2 MG/ML SYRINGE IVP PRN (16:30)
[2021-12-18] MEDS ORDERED: MAGNESIUM HYDROXIDE SUSPENSION 30 ML UDCUP PO PRN (16:30)
[2021-12-18] MEDS ORDERED: ZOLPIDEM TARTRATE 5 MG TABLET PO PRN ×2 (16:30→22:00)
[2021-12-18] MEDS ORDERED: FentaNYL CITRATE PF 100 MCG/2 ML VIAL ONE (17:10)
[2021-12-18] MEDS ORDERED: MIDAZOLAM HCL 2 MG/2 ML VIAL ONE (17:10)
[2021-12-18 17:18] VITALS: BP 114/54
[2021-12-18] MEDS ORDERED: IOHEXOL 300 MG/ML 50 ML VIAL IVP ONE (17:45)
[2021-12-18] MEDS ORDERED: MIDAZOLAM HCL 2 MG/2 ML VIAL IVP ONE ×2 (17:45→18:30)
[2021-12-18] MEDS ORDERED: LIDOCAINE 1% 30 ML/SOD BICARB 8.4% 4 ML SQ ONE (17:45)
[2021-12-18] MEDS ORDERED: SODIUM CHLORIDE 0.9% 500 ML IV ONE (17:45)
[2021-12-18] MEDS ORDERED: FentaNYL CITRATE PF 100 MCG/2 ML VIAL IVP ONE ×2 (17:45→18:30)
[2021-12-18 19:52] VITALS: BP 138/64
[2021-12-18 20:15] VITALS: BP 135/74
[2021-12-18] MEDS: HYDROCODONE/ACETAMINOPHEN 5-325 MG TABLET PO PRN (20:55)
[2021-12-18] MEDS: DOCUSATE SODIUM 100 MG CAPSULE PO SCH (20:55)
[2021-12-18 21:00] VITALS: BP 140/71
[2021-12-18 22:00] VITALS: BP 142/69
[2021-12-18] MEDS ORDERED: SODIUM CHLORIDE 0.9% 100 ML ONE (23:29)
[2021-12-18] MEDS: HEPARIN SODIUM,PORCINE 5,000 UNITS/ML VIAL SQ SCH ×2 (23:39→23:45)
[2021-12-18] MEDS: CeFAZolin 1 GM/DEXTROSE 50 ML IV SCH (23:39)
[2021-12-19] VITALS: BP 124/69
[2021-12-19 04:30] VITALS: BP 145/76
[2021-12-19] MEDS: CeFAZolin 1 GM/DEXTROSE 50 ML IV SCH ×2 (04:41→12:03)
[2021-12-19] MEDS: HYDROCODONE/ACETAMINOPHEN 5-325 MG TABLET PO PRN ×2 (04:41→08:54)
[2021-12-19 04:53] VITALS: BP 145/76
[2021-12-19] MEDS: ACETAMINOPHEN 325 MG TABLET PO PRN ×2 (07:05→14:10)
[2021-12-19] MEDS: HEPARIN SODIUM,PORCINE 5,000 UNITS/ML VIAL SQ SCH (08:00)
[2021-12-19 08:16] VITALS: BP 145/70
[2021-12-19 08:29] LABS: BASOPHILS % (AUTO) 0.4 % (0.0-2.0); EOSINOPHILS % (AUTO) 2.9 % (1.0-6.0); HEMATOCRIT 40.7 % (41-53); LYMPHOCYTES # (AUTO) 0.9 K/uL (1.0-4.8); LYMPHOCYTES % (AUTO) 17.4 % (22.0-44.0); MEAN CORPUSCULAR HEMOGLOBIN 33.9 pg (26.0-34.0); MEAN CORPUSCULAR HGB CONC 34.3 G/dL (31.0-37.0); MEAN CORPUSCULAR VOLUME 99 fL (80-100); MONOCYTES # (AUTO) 0.4 K/uL (0.1-1.0); MONOCYTES % (AUTO) 7.9 % (2.0-9.0); NEUTROPHILS # (AUTO) 3.5 K/uL (1.8-7.7); NEUTROPHILS % (AUTO) 71.4 % (40.0-70.0); PLATELET COUNT (AUTO) 167 K/uL (150-450); RED BLOOD CELL COUNT(AUTO) 4.12 MIL/uL (4.50-5.90); RED CELL DISTRIBUTION WIDTH 14.2 % (11.5-14.5)
[2021-12-19 08:39] LABS: CREATININE 1.44 mg/dL (0.60-1.30); POTASSIUM 4.7 mmol/L (3.5-5.1)
[2021-12-19] MEDS: DOCUSATE SODIUM 100 MG CAPSULE PO SCH (08:48)
[2021-12-19] MEDS ORDERED: PANTOPRAZOLE SODIUM 40 MG DR TABLET PO SCH (09:00)
[2021-12-19] MEDS ORDERED: FINASTERIDE 5 MG TABLET PO SCH (09:00)
[2021-12-19 09:03] LABS: THYROID STIMULATING HORMONE 1.78 uIU/mL (0.36-3.74)
[2021-12-19 11:47] VITALS: BP 133/77
== END 2021-12-19 15:40 | disposition home or self-care (01) | DRG 243 ==
LOC: EMS 14:42 → 5S 20:29
PROVIDERS: ADMIT Internal Medicine; ATTEND Internal Medicine
PROC: 0JH606Z Insertion of Pacemaker, Dual Chamber into Chest Subcutaneous Tissue and Fascia, Open Approach (ICD-10-PCS; principal; 2021-12-18)
PROC: 02HK3JZ Insertion of Pacemaker Lead into Right Ventricle, Percutaneous Approach (ICD-10-PCS; 2021-12-18)
PROC: 02H63JZ Insertion of Pacemaker Lead into Right Atrium, Percutaneous Approach (ICD-10-PCS; 2021-12-18)
DX: I44.2 Atrioventricular block, complete (principal); I50.32 Chronic diastolic (congestive) heart failure; G89.4 Chronic pain syndrome; Z20.822 Contact with and (suspected) exposure to COVID-19; I12.9 Hypertensive chronic kidney disease with stage 1 through stage 4 chronic kidney disease, or unspecified chronic kidney disease; M19.90 Unspecified osteoarthritis, unspecified site; N18.30 Chronic kidney disease, stage 3 unspecified; N40.0 Benign prostatic hyperplasia without lower urinary tract symptoms; Z96.649 Presence of unspecified artificial hip joint; K21.9 Gastro-esophageal reflux disease without esophagitis; Z95.0 Presence of cardiac pacemaker
CPT/HCPCS: 33208; 33210; 33216; 36005; 71045; 71046; 76000; 80048; 80053; 82550; 83735; 83880; 84100; 84443; 84484; 85025; 85610; 85730; 87081; 93005; 93306; 97110; 97162; 97165; 97535; 99291; J0690; J1644; J2250; J3010; J3490; J7050; J7060; Q9967; 36415-L1; 36415-TC

== ENCOUNTER 2023-09-09 16:58 | Inpatient (IN) | payer MEDICARE ==
[~2023-09-09] VITALS: Ht 175.3 cm; Wt 64.2 kg
[~2023-09-09 16:58] MED LIST changes: +CYAN500T56 PO; -CYAN500T9 PO; +DIPH-1243 PO; -DIPH25 PO; +FOLI-130 PO; -FOLI1TAB15 PO; +HYDR-4072 PO; -HYDR-4455 PO; +LACT1CAP79 PO; +MAGN-169 PO; -MOM30 PO; +PANT-31 PO; -TAMS0.4C32 PO; +TAMS0.4C34 PO; -VANC1.5P16 FLUSH
[2023-09-09] MEDS ORDERED: DEXAMETHASONE SOD PHOS 4 MG/ML 5 ML VIAL IVP ONE (17:15)
[2023-09-09 17:35] LABS: BASOPHILS % (AUTO) 0.3 % (0.0-2.0); EOSINOPHILS % (AUTO) 0.2 % (1.0-6.0); HEMATOCRIT 37.1 % (41-53); HEMOGLOBIN 12.3 g/dL (13.5-17.5); LYMPHOCYTES # (AUTO) 0.6 K/uL (1.0-4.8); LYMPHOCYTES % (AUTO) 10.7 % (22.0-44.0); MEAN CORPUSCULAR HEMOGLOBIN 33.3 pg (26.0-34.0); MEAN CORPUSCULAR VOLUME 101 fL (80-100); MONOCYTES # (AUTO) 0.5 K/uL (0.1-1.0); NEUTROPHILS # (AUTO) 4.5 K/uL (1.8-7.7); NEUTROPHILS % (AUTO) 79.8 % (40.0-70.0); PLATELET COUNT (AUTO) 252 K/uL (150-450); RED BLOOD CELL COUNT(AUTO) 3.68 MIL/uL (4.50-5.90); RED CELL DISTRIBUTION WIDTH 14.4 % (11.5-14.5); WHITE BLOOD COUNT (AUTO) 5.7 K/uL (4.5-11.0)
[2023-09-09 17:52] LABS: D-DIMER 1.17 mg/L FEU (0.00-0.50); INR 1.1 (0.9-1.1); PROTHROMBIN TIME 11.5 SEC (9.4-11.6)
[2023-09-09 17:55] LABS: CALCIUM, TOTAL 8.6 mg/dL (8.8-10.5); CREATININE 1.25 mg/dL (0.60-1.30); POTASSIUM 4.1 mmol/L (3.5-5.1)
[2023-09-09 18:03] LABS: TROPONIN I-HIGH SENSITIVITY 29 ng/L (<76)
[2023-09-09 18:20] LABS: LACTIC ACID 0.8 mmol/L (0.4-2.0)
[2023-09-09 18:27] LABS: ALBUMIN 2.5 g/dL (3.4-5.0); BILIRUBIN,TOTAL 0.8 mg/dL (0.1-1.0); C-REACTIVE PROTEIN QUANT 11.1 mg/dL (0.00-0.30); TOTAL PROTEIN, SERUM 6.6 g/dL (6.4-8.2)
[2023-09-09 18:30] LABS: SARS-COV2 (COVID) ANTIGEN,FIA Negative (Negative)
[2023-09-09 18:32] LABS: INFLUENZA TYPE A NEGATIVE FOR TYPE A (NEGATIVE); INFLUENZA TYPE B NEGATIVE FOR TYPE B (NEGATIVE)
[2023-09-09] MEDS ORDERED: GuaiFENesin/D-METHORPHAN/PHENYLEPH 5 ML LIQUID ORAL.SYG PO PRN (20:15)
[2023-09-09] MEDS ORDERED: 0.9% SODIUM CHLORIDE 10 ML SYRINGE IVP PRN (20:15)
[2023-09-09] MEDS ORDERED: IPRATROPIUM BROMIDE 0.5 MG/2.5 ML NEB SOLUTION NEB PRN (20:15)
[2023-09-09] MEDS ORDERED: MAGNESIUM HYDROXIDE SUSPENSION 30 ML UDCUP PO PRN ×2 (20:15)
[2023-09-09] MEDS ORDERED: ONDANSETRON HCL 4 MG/2 ML VIAL IVP PRN (20:15)
[2023-09-09] MEDS ORDERED: ALBUTEROL SULFATE 2.5 MG/0.5 ML NEB SOLUTION NEB PRN (20:15)
[2023-09-09] MEDS ORDERED: ACETAMINOPHEN 325 MG TABLET PO PRN (20:15)
[2023-09-09] MEDS ORDERED: DOCUSATE SODIUM 250 MG CAPSULE PO PRN (20:15)
[2023-09-09] MEDS ORDERED: OxyCODONE HCL/ACETAMINOPHEN 5-325 MG TABLET PO PRN (20:15)
[2023-09-09] MEDS ORDERED: BENZOCAINE/MENTHOL LOZENGE PO PRN (20:15)
[2023-09-09] MEDS: LATANOPROST 0.005% 2.5 ML OPHTHALMIC SOLUTION OU SCH (21:00)
[2023-09-09 21:15] VITALS: BP 157/79; PULSE 80; RESP 20; TEMP 98.6
[2023-09-09 21:34] LABS: TROPONIN I-HIGH SENSITIVITY 29 ng/L (<76)
[2023-09-09] MEDS: DOCUSATE SODIUM 100 MG CAPSULE PO SCH (22:35)
[2023-09-09 23:01] LABS: APPEARANCE,URINE CLEAR (CLEAR); BILIRUBIN,URINE NEGATIVE (NEGATIVE); COLOR,URINE YELLOW (YELLOW); GLUCOSE, URINE (UA) NEGATIVE (NEGATIVE); KETONES,URINE 40-60 mg/dL (NEGATIVE); LEUKOCYTE ESTERASE ,URINE NEGATIVE (NEGATIVE); NITRATE,URINE NEGATIVE (NEGATIVE); OCCULT BLOOD,URINE NEGATIVE (NEGATIVE); PH,URINE 5.5 (5.0-8.0); PROTEIN,URINE TRACE mg/dL (NEGATIVE); SPECIFIC GRAVITIY, URINE 1.016 (1.003-1.030); UROBILINOGEN,URINE <=1.0 mg/dL (<=1.0)
[2023-09-09] MEDS: HEPARIN SODIUM,PORCINE 5,000 UNITS/ML VIAL SQ SCH (23:34)
[2023-09-10 00:29] VITALS: BP 134/74; PULSE 82; RESP 18; TEMP 98.4
[2023-09-10 03:10] LABS: TROPONIN I-HIGH SENSITIVITY 29 ng/L (<76)
[2023-09-10 04:06] VITALS: BP 139/78; PULSE 88; RESP 18; TEMP 98.3
[2023-09-10 06:57] LABS: BASOPHILS % (AUTO) 0.1 % (0.0-2.0); EOSINOPHILS % (AUTO) 0 % (1.0-6.0); HEMATOCRIT 36.1 % (41-53); HEMOGLOBIN 12.3 g/dL (13.5-17.5); LYMPHOCYTES # (AUTO) 0.4 K/uL (1.0-4.8); LYMPHOCYTES % (AUTO) 9.3 % (22.0-44.0); MEAN CORPUSCULAR HGB CONC 33.9 G/dL (31.0-37.0); MEAN CORPUSCULAR VOLUME 100 fL (80-100); MONOCYTES # (AUTO) 0.1 K/uL (0.1-1.0); MONOCYTES % (AUTO) 1.4 % (2.0-9.0); NEUTROPHILS # (AUTO) 4.1 K/uL (1.8-7.7); PLATELET COUNT (AUTO) 268 K/uL (150-450); RED CELL DISTRIBUTION WIDTH 14.4 % (11.5-14.5); WHITE BLOOD COUNT (AUTO) 4.6 K/uL (4.5-11.0)
[2023-09-10 07:01] LABS: NEUTROPHILS % (AUTO) 89.2 % (40.0-70.0)
[2023-09-10 07:09] LABS: INR 1.1 (0.9-1.1); PROTHROMBIN TIME 11.2 SEC (9.4-11.6)
[2023-09-10 07:29] LABS: ALBUMIN 2.5 g/dL (3.4-5.0); BILIRUBIN,TOTAL 0.6 mg/dL (0.1-1.0); CALCIUM, TOTAL 8.6 mg/dL (8.8-10.5); CREATININE 1.17 mg/dL (0.60-1.30); MAGNESIUM 2.3 mg/dL (1.80-2.40); PHOSPHORUS 2.8 mg/dL (2.5-4.9); POTASSIUM 4.3 mmol/L (3.5-5.1); THYROID STIMULATING HORMONE 0.33 uIU/mL (0.36-3.74); TOTAL PROTEIN, SERUM 6.7 g/dL (6.4-8.2)
[2023-09-10 07:33] LABS: HEMOGLOBIN A1C 5.2 % (3.8-5.6)
[2023-09-10 08:00] VITALS: BP 149/78; RESP 18; TEMP 98.1
[2023-09-10] MEDS: HEPARIN SODIUM,PORCINE 5,000 UNITS/ML VIAL SQ SCH ×2 (08:47→16:56)
[2023-09-10] MEDS: ZINC SULFATE 220 MG CAPSULE PO SCH (08:48)
[2023-09-10] MEDS: FINASTERIDE 5 MG TABLET PO SCH (08:48)
[2023-09-10] MEDS: FERROUS SULFATE 325 MG EC TABLET PO SCH (08:49)
[2023-09-10] MEDS: CYANOCOBALAMIN 500 MCG TABLET PO SCH (08:49)
[2023-09-10] MEDS: SERTRALINE HCL 50 MG TABLET PO SCH (08:49)
[2023-09-10] MEDS: TAMSULOSIN HCL 0.4 MG CAPSULE PO SCH (08:49)
[2023-09-10] MEDS: FUROSEMIDE 20 MG TABLET PO SCH (08:49)
[2023-09-10] MEDS: PANTOPRAZOLE SODIUM 40 MG DR TABLET PO SCH (08:49)
[2023-09-10] MEDS: DOCUSATE SODIUM 100 MG CAPSULE PO SCH ×2 (08:49→21:12)
[2023-09-10] MEDS: FOLIC ACID 1 MG TABLET PO SCH (08:49)
[2023-09-10 09:14] LABS: TROPONIN I-HIGH SENSITIVITY 27 ng/L (<76)
[2023-09-10] MEDS: ACETAMINOPHEN 325 MG TABLET PO PRN (10:09)
[2023-09-10 11:51] VITALS: BP 134/70; PULSE 84; RESP 18; TEMP 97.9
[2023-09-10 16:04] VITALS: BP 140/79; PULSE 88; RESP 18; TEMP 97.7
[2023-09-10 20:23] VITALS: BP 155/87; PULSE 89; RESP 19; TEMP 98
[2023-09-10] MEDS: LATANOPROST 0.005% 2.5 ML OPHTHALMIC SOLUTION OU SCH (21:12)
[2023-09-11 00:24] VITALS: BP 150/83; PULSE 91; RESP 17; TEMP 98.1
[2023-09-11 05:15] VITALS: BP 152/83; PULSE 87; RESP 18; TEMP 97.7
[2023-09-11 06:46] LABS: BASOPHILS % (AUTO) 0.1 % (0.0-2.0); EOSINOPHILS % (AUTO) 0 % (1.0-6.0); HEMATOCRIT 38.8 % (41-53); HEMOGLOBIN 13.3 g/dL (13.5-17.5); LYMPHOCYTES # (AUTO) 0.6 K/uL (1.0-4.8); LYMPHOCYTES % (AUTO) 9.3 % (22.0-44.0); MEAN CORPUSCULAR HEMOGLOBIN 34.4 pg (26.0-34.0); MEAN CORPUSCULAR HGB CONC 34.3 G/dL (31.0-37.0); MEAN CORPUSCULAR VOLUME 100 fL (80-100); MONOCYTES # (AUTO) 0.5 K/uL (0.1-1.0); MONOCYTES % (AUTO) 7.9 % (2.0-9.0); NEUTROPHILS # (AUTO) 5.3 K/uL (1.8-7.7); NEUTROPHILS % (AUTO) 82.7 % (40.0-70.0); PLATELET COUNT (AUTO) 308 K/uL (150-450); RED BLOOD CELL COUNT(AUTO) 3.87 MIL/uL (4.50-5.90); WHITE BLOOD COUNT (AUTO) 6.4 K/uL (4.5-11.0)
[2023-09-11 06:53] LABS: ANION GAP 9 mmol/L (8-16); CALCIUM, TOTAL 8.6 mg/dL (8.8-10.5); CARBON DIOXIDE 27 mmol/L (22-29); CHLORIDE 100 mmol/L (98-107); CREATININE 1.09 mg/dL (0.60-1.30); GLOMERULAR FILTR. RATE CALC > 60 mL/min (>60); GLUCOSE,RANDOM 105 mg/dL (70-110); POTASSIUM 3.8 mmol/L (3.5-5.1); SODIUM SERUM 136 mmol/L (136-145); UREA NITROGEN, BLOOD 17 mg/dL (7-18)
[2023-09-11 07:40] VITALS: BP 149/76; PULSE 91; RESP 19; TEMP 98.1
[2023-09-11] MEDS: HEPARIN SODIUM,PORCINE 5,000 UNITS/ML VIAL SQ SCH ×3 (08:10→15:42)
[2023-09-11] MEDS: ZINC SULFATE 220 MG CAPSULE PO SCH (08:10)
[2023-09-11] MEDS: TAMSULOSIN HCL 0.4 MG CAPSULE PO SCH (08:10)
[2023-09-11] MEDS: FOLIC ACID 1 MG TABLET PO SCH (08:10)
[2023-09-11] MEDS: PANTOPRAZOLE SODIUM 40 MG DR TABLET PO SCH (08:10)
[2023-09-11] MEDS: FINASTERIDE 5 MG TABLET PO SCH (08:11)
[2023-09-11] MEDS: FUROSEMIDE 20 MG TABLET PO SCH (08:11)
[2023-09-11] MEDS: FERROUS SULFATE 325 MG EC TABLET PO SCH (08:11)
[2023-09-11] MEDS: CYANOCOBALAMIN 500 MCG TABLET PO SCH (08:11)
[2023-09-11] MEDS: SERTRALINE HCL 50 MG TABLET PO SCH (08:11)
[2023-09-11] MEDS: DOCUSATE SODIUM 100 MG CAPSULE PO SCH ×2 (08:17→21:00)
[2023-09-11 11:26] VITALS: BP 137/78; PULSE 84; RESP 18; TEMP 98
[2023-09-11 15:18] VITALS: BP 132/77; PULSE 94; RESP 18; TEMP 98.2
[2023-09-11] MEDS: ACETAMINOPHEN 325 MG TABLET PO PRN (15:43)
[2023-09-11 20:55] VITALS: BP 154/77; PULSE 96; RESP 24; TEMP 98.1
[2023-09-11] MEDS: LATANOPROST 0.005% 2.5 ML OPHTHALMIC SOLUTION OU SCH (21:00)
[2023-09-12 00:21] VITALS: BP 149/89; PULSE 92; RESP 24; TEMP 98.1
[2023-09-12] MEDS: HEPARIN SODIUM,PORCINE 5,000 UNITS/ML VIAL SQ SCH ×2 (00:54→08:20)
[2023-09-12 04:54] VITALS: BP 155/88; PULSE 95; RESP 20; TEMP 98
[2023-09-12 07:44] VITALS: BP 146/85; PULSE 95; RESP 21; TEMP 97.9
[2023-09-12] MEDS: FUROSEMIDE 20 MG TABLET PO SCH (08:19)
[2023-09-12] MEDS: FOLIC ACID 1 MG TABLET PO SCH (08:19)
[2023-09-12] MEDS: FINASTERIDE 5 MG TABLET PO SCH (08:19)
[2023-09-12] MEDS: FERROUS SULFATE 325 MG EC TABLET PO SCH (08:19)
[2023-09-12] MEDS: PANTOPRAZOLE SODIUM 40 MG DR TABLET PO SCH (08:19)
[2023-09-12] MEDS: CYANOCOBALAMIN 500 MCG TABLET PO SCH (08:19)
[2023-09-12] MEDS: TAMSULOSIN HCL 0.4 MG CAPSULE PO SCH (08:19)
[2023-09-12] MEDS: SERTRALINE HCL 50 MG TABLET PO SCH (08:20)
[2023-09-12] MEDS: DOCUSATE SODIUM 100 MG CAPSULE PO SCH (08:20)
[2023-09-12] MEDS: ZINC SULFATE 220 MG CAPSULE PO SCH (08:20)
[2023-09-13 03:06] LABS: HEPATITIS C AB (EIA) Non Reactive (Non Reactive)
== END 2023-09-12 10:45 | disposition home or self-care (01) | DRG 189 ==
LOC: EMS 17:19 → 5S 19:08
PROVIDERS: ADMIT Internal Medicine; ATTEND Internal Medicine
DX: J96.91 Respiratory failure, unspecified with hypoxia (principal); I11.0 Hypertensive heart disease with heart failure; K21.9 Gastro-esophageal reflux disease without esophagitis; I50.9 Heart failure, unspecified; U09.9 Post COVID-19 condition, unspecified; M19.90 Unspecified osteoarthritis, unspecified site; Z20.822 Contact with and (suspected) exposure to COVID-19; F32.A Depression, unspecified; F41.9 Anxiety disorder, unspecified; N40.0 Benign prostatic hyperplasia without lower urinary tract symptoms; Z96.649 Presence of unspecified artificial hip joint; J44.9 Chronic obstructive pulmonary disease, unspecified; Z95.0 Presence of cardiac pacemaker; Z79.899 Other long term (current) drug therapy; H40.9 Unspecified glaucoma
CPT/HCPCS: 71045; 80048; 80053; 81003; 82550; 82728; 83036; 83605; 83615; 83735; 83880; 84100; 84145; 84443; 84484; 85025; 85379; 85384; 85610; 85730; 86140; 86803; 87040; 87081; 87340; 87804; 93005; 99285; J1100; J1644; 36415-L1; 36415-TC